=== PATIENT | male | born 1995 | race Two or more races ===

== ENCOUNTER 2016-04-21 13:05 | Emergency (ER) | payer OTHER ==
[2016-04-21] MEDS ORDERED: IBUPROFEN 800 MG TABLET ONE (13:32)
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
== END 2016-04-21 16:42 | disposition home or self-care (01) ==
LOC: ED 13:05
DX: S46.912A Strain of unspecified muscle, fascia and tendon at shoulder and upper arm level, left arm, initial encounter (principal); M25.562 Pain in left knee; E11.9 Type 2 diabetes mellitus without complications; Z79.84 Long term (current) use of oral hypoglycemic drugs; V09.20XA Pedestrian injured in traffic accident involving unspecified motor vehicles, initial encounter; Y93.55 Activity, bike riding; Y92.410 Unspecified street and highway as the place of occurrence of the external cause
CPT/HCPCS: 73564; 73030; A9270